=== PATIENT | female | born 1985 | race African-American/Black ===

== ENCOUNTER 2016-10-17 20:20 | Emergency (ER) | payer MEDICAID ==
[~2016-10-17] VITALS: Ht 162.6 cm; Wt 90.7 kg
[2016-10-17 20:50] VITALS: BP 146/81
[2016-10-17] MEDS ORDERED: Albuterol ud Inhalation HHN ONE (22:00)
[2016-10-17] MEDS ORDERED: Ipratropium 0.02% Inh Soln 2.5ml UD HHN ONE (22:00)
[2016-10-17] MEDS ORDERED: Azithromycin 250mg tab ORAL ONE (23:30)
[2016-10-17] MEDS ORDERED: PHENERGAN6.25 MG/5 ORAL (23:31)
[2016-10-17] MEDS ORDERED: AZITHROMYCIN250 MG ORAL (23:31)
[2016-10-17] MEDS ORDERED: TRAMADOL HCL50 MG ORAL (23:31)
[2016-10-17 23:44] VITALS: BP 142/79
--- NOTE | 2016-10-18 10:22 | Emergency Room Report ---
History of Present Illness General Chief Complaint: Upper Respiratory Illness Source: Patient Present Illness HPI URI sy with wheezing for 2 weeks, now worse. Green sputum. H/O asthma. Never on steroids (that she knows). Not her worst attack. Using her inhaler. No CP, NVD, dysuria, HO[place]. Some muscle aches with cough. No calf pain or swelling. Allergies: Coded Allergies: ACETAMINOPHEN (Verified Allergy, Unknown, 10/17/16) CODEINE (Verified Allergy, Unknown, 10/17/16) Patient History Past Medical History: see triage record Social History: Denies: smoking Social History Narrative with mom. Not employed currently Last Menstrual Period: 08/26/16 Now: No Nursing Documentation-PM Past Medical History: No Stated History Review of Systems All Other Systems: negative except mentioned in HPI Physical Exam Vital Signs Date Time Temp Pulse Resp B/P Pulse Ox O2 Delivery O2 Flow Rate FiO2 10/17/16 20:32 98.4 105 19 146/81 100 Room Air Sp02 EP Interpretation: reviewed, normal General Appearance: well appearing, no apparent distress, GCS 15 Head: normocephalic, atraumatic Eyes: bilateral eye PERRL, bilateral eye normal inspection ENT: normal pharynx, moist mucus membranes Neck: supple Respiratory: wheezing, expiration - post tussive Cardiovascular #1: regular rate, rhythm Cardiovascular #2: 2+ radial (R) Gastrointestinal: normal inspection, normal bowel sounds, non tender, no mass, non-distended, overweight Musculoskeletal: back normal, gait/station normal, normal range of motion, no calf tenderness Neurologic: alert, oriented x3 Psychiatric: mood/affect normal Skin: normal inspection, warm/dry Medical Decision Making Diagnostic Impression: Primary Impression: Asthmatic bronchitis Qualified Codes: J45.51 - Severe persistent asthma with (acute) exacerbation ER Course Patient with several week course of URI with productive phlegm. DDx: asthma, bronchitis, pneumonia. Exam c/w prior 2 but need xray. Will also order breathing treatment. Improved with tx. CXR no infiltrate. Improved. Given decadron here. Patient stable for outpatient observation and treatment. Chest X-Ray Diagnostic Results EP Interpretation: Yes Findings: no consolidation, no effusion, no pneumothorax, no acute cardiopulmonary disease Number of Views: 1 Last Vital Signs Date Time Temp Pulse Resp B/P Pulse Ox O2 Delivery O2 Flow Rate FiO2 10/17/16 23:44 98.4 82 16 142/79 100 Room Air Status: improved Disposition: HOME, SELF-CARE Condition: Improved Scripts Tramadol Hcl* (ULTRAM*) 50 Mg Tablet 50 MG ORAL Q6H Y for For Pain, #10 TAB 0 Refills Prov: Garo Rand M.D. 10/17/16 Promethazine/Dextromethorphan (Promethazine-Dm Syrup) 473 Ml Syrup 1 TSP ORAL Q6H Y for For Cough, #90 ML 0 Refills Prov: Garo Rand M.D. 10/17/16 Azithromycin* (ZITHROMAX*) 250 Mg Tablet 250 MG ORAL DAILY for 4 Days, TAB Prov: Garo aRnd M.D. 10/17/16 Patient Instructions: Bronchospasm, Adult Additional Instructions: OK to take tylenol. See your doctor soon. Garo Rand M.D. Oct 18, 2016 10:22
--- NOTE | 2016-10-18 14:26 | Diagnostic Imaging Report ---
Indication: COUGH Technique: Single AP view of the chest. Findings: Comparison: None. The bones and extra pulmonary soft tissues, cardiomediastinal silhouette, pulmonary vasculature and parenchyma, and pleural surfaces are unremarkable. IMPRESSION: Negative AP chest.
== END 2016-10-17 23:44 | disposition home or self-care (01) ==
LOC: EMR 21:28
DX: J45.909 Unspecified asthma, uncomplicated (principal); Z88.6 Allergy status to analgesic agent
CPT/HCPCS: 71010; 94640; 94664; 99283; J8540; Q0144

== ENCOUNTER 2017-03-17 13:55 | Emergency (ER) | payer MEDICAID ==
[~2017-03-17] VITALS: Ht 162.6 cm; Wt 93.0 kg
[~2017-03-17 13:55] MED LIST: AZITHROMYCIN250 MG ORAL; PHENERGAN6.25 MG/5 ORAL; TRAMADOL HCL50 MG ORAL
[2017-03-17 14:13] VITALS: BP 118/62
[2017-03-17] MEDS ORDERED: Lidocaine 2% Visc 15ml soln ORAL ONE (14:30)
[2017-03-17] MEDS ORDERED: Mylanta II UD 30ml ORAL ONE (14:30)
[2017-03-17] MEDS ORDERED: Dicyclomine HCl 10mg/5ml oral soln ORAL ONE (14:30)
[2017-03-17 14:58] LABS: APPEARANCE,URINE CLEAR; KETONES,URINE NEGATIVE (NEGATIVE); LEUKOCYTE ESTERASE ,URINE 1+ (NEGATIVE); NITRITE,URINE NEGATIVE (NEGATIVE); PH,URINE 7 (4.5-8.0); PROTEIN,URINE NEGATIVE (NEGATIVE); UROBILINOGEN,URINE 1 MG/DL (0.0-1.0)
[2017-03-17 15:02] LABS: BASOPHILS % (AUTO) 1.1 % (0.0-2.0); EOSINOPHILS % (AUTO) 1.9 % (0.0-3.0); MEAN CORPUSCULAR HEMOGLOBIN 27.2 PG (27.0-31.0); MEAN CORPUSCULAR HGB CONC 33.2 G/DL (32.0-36.0); MEAN CORPUSCULAR VOLUME 82 FL (80-99); MEAN PLATELET VOLUME 8.3 FL (6.5-10.1); PLATELET COUNT 258 K/UL (150-450); RED BLOOD COUNT 4.62 M/UL (4.20-5.40); RED CELL DISTRIBUTION WIDTH 12.3 % (11.6-14.8); WHITE BLOOD COUNT 7.7 K/UL (4.8-10.8)
[2017-03-17 15:06] LABS: BACTERIA,URINE FEW /HPF; MUCUS,URINE FEW /LPF (NONE/OCC); SQUAMOUS EPITHELIAL CELL,UR FEW /LPF (NONE/OCC)
[2017-03-17 15:38] LABS: ALANINE AMINOTRANSFERASE 9 U/L (3-33); ALBUMIN/GLOBULIN RATIO 1.2 (1.0-2.7); AMYLASE 62 U/L (10-110); ANION GAP 16 (5-15); ASPARTATE AMINO TRANSFERASE 12 U/L (5-40); CALCIUM 9.2 mg/dL (8.6-10.2); CARBON DIOXIDE 26 mEQ/L (20-30); CHLORIDE 95 mEQ/L (98-107); CREATININE 0.8 mg/dL (0.5-0.9); GLOMERULAR FILTRATION RATE > 60 mL/min (>60); HEMOLYSIS 5; LIPASE 30 U/L (< 60); POTASSIUM 3.8 mEQ/L (3.4-4.9); SODIUM 137 mEQ/L (135-145); TOTAL PROTEIN 7.7 g/dL (6.6-8.7)
--- NOTE | 2017-03-17 16:10 | Emergency Room Report ---
History of Present Illness General Chief Complaint: Abdominal Pain Source: Patient Present Illness HPI 31 y/o female c/o epigastric pain x 4 months. Assoc sxs include nausea, bloating and abd cramping. Concurrently, patient also has suprapubic pain and pressure for the past few days. No modifying factors for suprapubic pain, states she has increased nausea with eating meals but pain is constant w/o modifying factors. Patient states she has hx of irregular menses but that is normal for her and denies any dysmenorrhea. Denies any current f/c/d, back pain , neck pain, photophobia, phonophobia, frequency, urgency, dysuria, hematuria, flank pain, CP, SOB headache, melena, hematochezia, steatorrhea, or acid reflux. Allergies: Coded Allergies: ACETAMINOPHEN (Verified Allergy, Unknown, 10/17/16) CODEINE (Verified Allergy, Unknown, 10/17/16) Patient History Past Medical History: see triage record Past Surgical History: none Pertinent Family History: none Last Menstrual Period: 11/16/16 Now: No - pt denies Reviewed Nursing Documentation: PMH: Agreed, PSxH: Agreed Nursing Documentation-PMH Past Medical History: No History, Except For Hx Asthma: Yes Review of Systems All Other Systems: negative except mentioned in HPI Physical Exam Vital Signs Date Time Temp Pulse Resp B/P Pulse Ox O2 Delivery O2 Flow Rate FiO2 03/17/17 14:04 98.4 82 16 114/64 96 Room Air Sp02 EP Interpretation: reviewed, normal General Appearance: no apparent distress, alert, GCS 15, non-toxic Head: normocephalic, atraumatic Eyes: bilateral eye normal inspection ENT: hearing grossly normal, normal pharynx, no angioedema, normal voice Neck: full range of motion, supple/symm/no masses Respiratory: chest non-tender, lungs clear, normal breath sounds, speaking full sentences Cardiovascular #1: regular rate, rhythm, no edema Gastrointestinal: soft, no mass, non-distended, no guarding, no rebound, abnormal bowel sounds - hyperactive, tenderness - epigastric and RUQ. +[place]Burney Musculoskeletal: gait/station normal Neurologic: alert, oriented x3, responsive, motor strength/tone normal, sensory intact, speech normal Psychiatric: judgement/insight normal, memory normal, mood/affect normal, no suicidal/homicidal ideation Skin: normal color, no rash, warm/dry, well hydrated Lymphatic: no adenopathy Medical Decision Making PA Attestation Dr. Masterson is my supervising physician with whom patient management has been discussed with. Diagnostic Impression: Primary Impression: Abdominal pain Qualified Codes: R10.13 - Epigastric pain Additional Impression: Acute cystitis Qualified Codes: N30.00 - Acute cystitis without hematuria ER Course Pt. presents to the ED c/o abdominal pain. Ddx considered but are not limited to viral syndrome, , appendicitis, diverticulitis, constipation, gastroenteritis, abdominal hernia, pancreatitis, cholecystitis, nephrolithiasis, and ovarian torsion. Vital signs: are WNL, pt. is afebrile H&PE are most consistent with abd pain, likely biliary colic with concurrent UTI ORDERS: CBC, CMP, Lipase, Amylase, UA ED INTERVENTIONS: GI cocktail, zofran, NS. DISCHARGE: At this time pt. is stable for d/c to home. Will provide printed patient care instructions, and any necessary prescriptions. Care plan and follow up instructions have been discussed with the patient prior to discharge. Laboratory Tests Test 03/17/17 14:50 White Blood Count 7.7 K/UL (4.8-10.8) Red Blood Count 4.62 M/UL (4.20-5.40) Hemoglobin 12.6 G/DL (12.0-16.0) Hematocrit 37.8 % (37.0-47.0) Mean Corpuscular Volume 82 FL (80-99) Mean Corpuscular Hemoglobin 27.2 PG (27.0-31.0) Mean Corpuscular Hemoglobin Concent 33.2 G/DL (32.0-36.0) Red Cell Distribution Width 12.3 % (11.6-14.8) Platelet Count 258 K/UL (150-450) Mean Platelet Volume 8.3 FL (6.5-10.1) Neutrophils (%) (Auto) 49.0 % (45.0-75.0) Lymphocytes (%) (Auto) 42.0 % (20.0-45.0) Monocytes (%) (Auto) 6.0 % (1.0-10.0) Eosinophils (%) (Auto) 1.9 % (0.0-3.0) Basophils (%) (Auto) 1.1 % (0.0-2.0) Urine Color Yellow Urine Appearance Clear Urine pH 7 (4.5-8.0) Urine Specific [place] 1.015 (1.005-1.035) Urine Protein Negative (NEGATIVE) Urine Glucose (UA) Negative (NEGATIVE) Urine Ketones Negative (NEGATIVE) Urine Occult Blood 1+ (NEGATIVE) H Urine Nitrite Negative (NEGATIVE) Urine Bilirubin Negative (NEGATIVE) Urine Urobilinogen 1 MG/DL (0.0-1.0) H Urine Leukocyte Esterase 1+ (NEGATIVE) H Urine RBC 2-4 /HPF (0 - 2) H Urine WBC 2-4 /HPF (0 - 2) Urine Squamous Epithelial Cells Few /LPF (NONE/OCC) Urine Bacteria Few /HPF (NONE) Urine Mucus Few /LPF (NONE/OCC) H Sodium Level 137 mEQ/L (135-145) Potassium Level 3.8 mEQ/L (3.4-4.9) Chloride Level 95 mEQ/L (98-107) L Carbon Dioxide Level 26 mEQ/L (20-30) Anion Gap 16 (5-15) H Blood Urea Nitrogen 11 mg/dL (7-23) Creatinine 0.8 mg/dL (0.5-0.9) Estimate Glomerular Filtration Rate > 60 mL/min (>60) Glucose Level 98 mg/dL (74-106) Calcium Level 9.2 mg/dL (8.6-10.2) Total Bilirubin 0.6 mg/dL (0.0-1.2) Aspartate Amino Transferase (AST) 12 U/L (5-40) Alanine Aminotransferase (ALT) 9 U/L (3-33) Alkaline Phosphatase 52 U/L (35-104) Total Protein 7.7 g/dL (6.6-8.7) Albumin 4.3 g/dL (3.5-5.2) Globulin 3.4 g/dL Albumin/Globulin Ratio 1.2 (1.0-2.7) Amylase Level 62 U/L (10-110) Lipase 30 U/L (< 60) Chest X-Ray Diagnostic Results Chest X-Ray Ordered: No CT/MRI/US Diagnostic Results CT/MRI/US Diagnostic Results : Imaging Test Ordered: US Abd Impression Contracted gallbladder w/o evidence of stone or wall thickening Last Vital Signs Date Time Temp Pulse Resp B/P Pulse Ox O2 Delivery O2 Flow Rate FiO2 6/11/17 16:45 98.3 85 17 118/62 98 Room Air Status: improved Disposition: HOME, SELF-CARE Condition: Improved Scripts Ondansetron Odt* (ZOFRAN ODT*) 8 Mg Tab.rapdis 8 MG ORAL Q8HR Y for Nausea & Vomiting, #20 TAB Prov: FRANCIE DAVID.A. 03/17/17 Cephalexin* (KEFLEX*) 500 Mg Capsule 500 MG ORAL EVERY 12 HOURS, #14 CAP 0 Refills Prov: FRANCIE DAVID P.A. 03/17/17 Patient Instructions: Abdominal Pain, Adult, Biliary Colic, Fat and Cholesterol Restricted Diet Additional Instructions: Take medication as directed. Patient instructed to stay well hydrated and to use a liquid diet and then progress to soft bland diet as tolerated before reverting back to a regular diet. Patient Education was given to the patient. Patient advised if irreretractible pain, rectal bleeding, or no BM to go to ER immediately. FRANCIE DAVID Mar 17, 2017 16:10
[2017-03-17] MEDS ORDERED: CEPHALEXIN500 MG ORAL (16:27)
[2017-03-17] MEDS ORDERED: ZOFRAN ODT8 MG ORAL (16:27)
[2017-03-17 16:44] VITALS: BP 122/65
[2017-03-17 16:45] VITALS: BP 118/62
--- NOTE | 2017-03-19 11:38 | Diagnostic Imaging Report ---
Indication: PAIN Technique: Wolf-scale and duplex images of the upper abdomen were obtained Comparison: None Findings: Gallbladder is incompletely distended, otherwise unremarkable, without stones, wall thickening, nor pericholecystic fluid. Sonographic Sarmiento's sign is negative. Common bile duct measures 2 mm in diameter. No intrahepatic biliary ductal dilatation. Liver demonstrates normal echogenicity, no focal abnormality. Portal vein and hepatic veins are patent. Pancreas is unremarkable. Spleen is unremarkable. Left kidney measures 11.9 cm in length. Right kidney measures 12 cm length. Both kidneys demonstrate normal echogenicity. There is no hydronephrosis. No focal abnormality . Non-aneurysmal abdominal aorta . Impression: Negative
== END 2017-03-17 16:45 | disposition home or self-care (01) ==
LOC: EMR 14:35
DX: R10.13 Epigastric pain (principal); N30.00 Acute cystitis without hematuria; Z88.6 Allergy status to analgesic agent; K82.0 Obstruction of gallbladder
CPT/HCPCS: 36415; 76700; 80053; 81003; 82150; 83690; 85025; 96360; 96372; 99284; J2405

== ENCOUNTER 2018-02-20 00:36 | Emergency (ER) | payer MEDICAID ==
[~2018-02-20] VITALS: Ht 162.6 cm; Wt 99.8 kg
[~2018-02-20 00:36] MED LIST changes: +CEPHALEXIN500 MG ORAL; +ZOFRAN ODT8 MG ORAL
[2018-02-20] MEDS ORDERED: BENADRYL25 M3 PO (02:22)
[2018-02-20] MEDS ORDERED: KENALOG 0.025%15 GM APPLIC (02:22)
--- NOTE | 2018-02-20 02:25 | Emergency Room Report ---
History of Present Illness General Chief Complaint: Skin Rash/Abscess Source: Patient Present Illness HPI 32-year-old female presents with itching after sitting on a hotel bed. Symptoms started 30 minutes after sitting there She noticed multiple bites Did not see any obvious bugs, but suspected bedbugs Allergies: Coded Allergies: ACETAMINOPHEN (Verified Allergy, Unknown, 10/17/16) CODEINE (Verified Allergy, Unknown, 10/17/16) Patient History Past Medical History: see triage record Last Menstrual Period: december 12 Now: No Reviewed Nursing Documentation: PMH: Agreed; PSxH: Agreed Nursing Documentation-PMH Hx Asthma: Yes Review of Systems All Other Systems: negative except mentioned in HPI Physical Exam Vital Signs Date Time Temp Pulse Resp B/P (MAP) Pulse Ox O2 Delivery O2 Flow Rate FiO2 02/20/18 00:40 98.2 92 18 142/97 99 Room Air 98.2 Sp02 EP Interpretation: reviewed, normal General Appearance: no apparent distress, alert, non-toxic Head: normocephalic Eyes: bilateral eye normal inspection, bilateral eye PERRL, bilateral eye EOMI ENT: normal ENT inspection, hearing grossly normal, normal pharynx, no angioedema, normal voice, moist mucus membranes Neck: normal inspection, full range of motion, supple, supple/symm/no masses Respiratory: lungs clear, normal breath sounds Cardiovascular #1: regular rate, rhythm Cardiovascular #2: 2+ radial (R), 2+ radial (L) Gastrointestinal: normal inspection, non tender, soft, no mass, no guarding, no rebound Rectal: deferred Genitourinary: normal inspection, no CVA tenderness Musculoskeletal: back normal, gait/station normal, normal range of motion Neurologic: alert, responsive, track mechanic III-XII nml as tested, motor strength/tone normal, sensory intact, speech normal Psychiatric: judgement/insight normal, memory normal, mood/affect normal Skin: normal color, no rash, warm/dry, normal turgor, rash - Punctate areas along back and legs, 2 mm diameter slight erythema, no hemorrhagic areas Lymphatic: no adenopathy Medical Decision Making Diagnostic Impression: Primary Impression: Bed bug bite ER Course Examination history very consistent with bedbug bites, we will give triamcinolone and Benadryl Last Vital Signs Date Time Temp Pulse Resp B/P (MAP) Pulse Ox O2 Delivery O2 Flow Rate FiO2 02/20/18 00:40 98.2 92 18 142/97 99 Room Air 98.2 Disposition: HOME, SELF-CARE Condition: Stable Scripts Diphenhydramine HCl (Benadryl) 25 Mg Capsule 25 MG PO QID for 5 Days, CAP Prov: REYES YIP M.D 02/20/18 Triamcinolone Acet (Triamcinolone Acetonide) 15 Gm Cream..g. 15 GM APPLIC BID for 7 Days, GM Prov: REYES YIP M.D 02/20/18 Patient Instructions: Chicho, [id number] REYES YIP M.D February 20, 2018 02:25
[2018-02-20 02:45] VITALS: BP 142/97
== END 2018-02-20 03:35 | disposition home or self-care (01) ==
LOC: EMR 01:34
DX: S30.860A Insect bite (nonvenomous) of lower back and pelvis, initial encounter (principal); S80.862A Insect bite (nonvenomous), left lower leg, initial encounter; S80.861A Insect bite (nonvenomous), right lower leg, initial encounter; W57.XXXA Bitten or stung by nonvenomous insect and other nonvenomous arthropods, initial encounter; Y92.59 Other trade areas as the place of occurrence of the external cause; R21 Rash and other nonspecific skin eruption; J45.909 Unspecified asthma, uncomplicated; Z88.6 Allergy status to analgesic agent; Z88.5 Allergy status to narcotic agent
CPT/HCPCS: 99284

== ENCOUNTER 2018-04-01 13:55 | Emergency (ER) | payer MEDICAID ==
[~2018-04-01] VITALS: Ht 162.6 cm; Wt 99.8 kg
[~2018-04-01 13:55] MED LIST changes: +BENADRYL25 M3 PO; +KENALOG 0.025%15 GM APPLIC
[2018-04-01] MEDS ORDERED: Ketorolac 30mg Inj IM ONE (14:45)
[2018-04-01] MEDS ORDERED: Dexamethasone 4mg/ml vial IM ONE (14:45)
[2018-04-01] MEDS ORDERED: Ipratropium 0.02% Inh Soln 2.5ml UD HHN ONE (14:45)
[2018-04-01] MEDS ORDERED: Albuterol ud Inhalation HHN ONE (14:45)
[2018-04-01] MEDS ORDERED: TYLENOL EXTRA500 MG ORAL (15:23)
[2018-04-01] MEDS ORDERED: ALBUTEROL SULF8.5 GM INH (15:23)
[2018-04-01] MEDS ORDERED: AMOXICILLIN500 MG ORAL (15:23)
[2018-04-01 15:40] VITALS: BP 127/66
--- NOTE | 2018-04-01 15:46 | Emergency Room Report ---
History of Present Illness General Chief Complaint: Flu Like Symptoms Source: Patient Present Illness HPI 32-year-old female presents ED for evaluation. Complaining of body aches and chills since last night. Afebrile in triage. Also complaining of sore throat. Chest tightness. History of asthma. Pain is dull, 10 out of 10, nonradiating. Denies sick contacts or recent travel. Denies dysuria or hematuria. No other aggravating or relieving factors. Denies any other associated symptoms Allergies: Coded Allergies: CODEINE (Verified Allergy, Unknown, 10/17/16) Patient History Past Medical History: asthma Past Surgical History: none Pertinent Family History: none Social History: Denies: smoking, alcohol use, drug use Last Menstrual Period: 5-8 Now: No Immunizations: UTD Reviewed Nursing Documentation: PMH: Agreed; PSxH: Agreed Nursing Documentation-PMH Past Medical History: No History, Except For Hx Asthma: Yes Review of Systems All Other Systems: negative except mentioned in HPI Physical Exam Vital Signs Date Time Temp Pulse Resp B/P (MAP) Pulse Ox O2 Delivery O2 Flow Rate FiO2 04/01/18 14:08 100.9 116 20 127/66 95 Room Air 100.9 04/01/18 15:18 21 Sp02 EP Interpretation: reviewed, normal General Appearance: no apparent distress, alert, GCS 15, non-toxic Head: normocephalic, atraumatic Eyes: bilateral eye normal inspection, bilateral eye PERRL ENT: hearing grossly normal, no angioedema, normal voice, pharyngeal erythema, tonsillar exudate Neck: full range of motion, supple/symm/no masses Respiratory: chest non-tender, lungs clear, speaking full sentences, wheezing Cardiovascular #1: regular rate, rhythm, no edema Cardiovascular #2: 2+ carotid (R), 2+ carotid (L), 2+ radial (R), 2+ radial (L) , 2+ dorsalis pedis (R), 2+ dorsalis pedis (L) Gastrointestinal: normal bowel sounds, non tender, soft, non-distended, no guarding, no rebound Rectal: deferred Genitourinary: normal inspection, no CVA tenderness Musculoskeletal: back normal, gait/station normal, normal range of motion, non- tender Neurologic: alert, oriented x3, responsive, motor strength/tone normal, sensory intact, speech normal Psychiatric: judgement/insight normal, memory normal, mood/affect normal, no suicidal/homicidal ideation Reflexes: 3+ bicep (R), 3+ bicep (L), 3+ tricep (R), 3+ tricep (L), 3+ knee (R) , 3+ knee (L) Skin: normal color, no rash, warm/dry, well hydrated Lymphatic: no adenopathy Medical Decision Making Diagnostic Impression: Primary Impression: Pharyngitis Qualified Codes: J02.9 - Acute pharyngitis, unspecified Additional Impression: Asthmatic bronchitis Qualified Codes: J45.909 - Unspecified asthma, uncomplicated ER Course Hospital Course 32-year-old female presents ED complaining of body aches and chills, sore throat , wheezing Differential diagnoses include: URI, bronchitis, asthma/COPD, pneumonia Clinical course Patient placed on stretcher. After initial history, physical exam reveals female in no acute distress. There is pharyngeal erythema with tonsillar exudates. Bilateral TM unremarkable. Wheezing on exam I ordered decadron, pain meds and nebulizer treatment. Upon reassessment patient states cough and symptoms have improved. Diagnosis - pharyngitis, asthmatic bronchitis Stable and discharged home with prescriptions for Rx amoxicillin, tylenol, albuterol. Instructed to followup with PMD. Return to ED if symptoms recur or worsen Last Vital Signs Date Time Temp Pulse Resp B/P (MAP) Pulse Ox O2 Delivery O2 Flow Rate FiO2 04/01/18 15:27 119 20 99 Room Air 21 04/01/18 14:46 100.9 04/01/18 14:08 127/66 Status: improved Disposition: HOME, SELF-CARE Condition: Stable Scripts Amoxicillin* (AMOXIL*) 500 Mg Capsule 500 MG ORAL THREE TIMES A DAY, #21 CAP Prov: Freddy Terrell MD 04/01/18 Acetaminophen* (TYLENOL EXTRA STRENGTH*) 500 Mg Tablet 500 MG ORAL Q8H PRN for Prn Headache/Temp > 101, #30 TAB 0 Refills Prov: Freddy Terrell MD 04/01/18 Albuterol Sulfate* (ALBUTEROL SULFATE MDI*) 8.5 Gm Hfa.aer.ad 2 PUFF INH Q6H, #1 EA 0 Refills Prov: Freddy Terrell MD 04/01/18 Patient Instructions: Pharyngitis, [id number] Freddy Terrell MD Apr 01, 2018 15:46
== END 2018-04-01 15:50 | disposition home or self-care (01) ==
LOC: EMR 14:41
DX: J02.9 Acute pharyngitis, unspecified (principal); J45.909 Unspecified asthma, uncomplicated; Z88.5 Allergy status to narcotic agent
CPT/HCPCS: 94640; 94664; 96372; 99284; J1100; J1885

== ENCOUNTER 2019-06-25 11:15 | Emergency (ER) | payer OTHER ==
[~2019-06-25] VITALS: Ht 162.6 cm; Wt 102.5 kg
[~2019-06-25 11:15] MED LIST changes: +ALBUTEROL SULF8.5 GM INH; +ALBUTEROL2.5 MG/3 M HHN; +AMOXICILLIN500 MG ORAL; +PREDNISONE20 MG ORAL; +PROMETHAZINE-C118 M1 ORAL; +TYLENOL EXTRA500 MG ORAL
--- NOTE | 2019-06-25 11:33 | NUR ---
ED Nurse Note: Patient in chair awaiting dr review wearing facemask. symptoms for 3 days also complaoing of bilateral feet swelling and vomitting and back pain.
[2019-06-25 11:40] VITALS: BP 145/94
[2019-06-25] MEDS ORDERED: Albuterol ud Inhalation HHN ONE ×2 (11:45→12:30)
--- NOTE | 2019-06-25 12:13 | NUR ---
ED Nurse Note: Patient recieving nebuliser awaiting chest xray. RT present.
--- NOTE | 2019-06-25 13:02 | Diagnostic Imaging Report ---
Indication: Dyspnea Comparison: 10/17/2016 A single view chest radiograph was obtained. Findings: Cardiomediastinal appearance is within normal limits for age. The lungs are clear. Pulmonary vascularity is appropriate. The diaphragmatic contour is smooth and costophrenic angles are sharp. No pleural effusions are identified. The bones are unremarkable. Impression: No acute findings
--- NOTE | 2019-06-25 13:30 | Emergency Room Report ---
History of Present Illness General Chief Complaint: Upper Respiratory Illness Source: Patient Present Illness HPI This patient states that she has had a week of cold symptoms. She states she has had cough and congestion and sore throat. She states that over the past couple days she has developed shortness of breath and an irritable cough. She has a history of asthma. She has been using her albuterol inhaler. She denies fever chills. She denies nausea or vomiting. She states she has been laying around and noted that she has some swelling in her feet. She has no other complaints. Allergies: Coded Allergies: CODEINE (Verified Allergy, Unknown, 10/17/16) Patient History Past Medical History: see triage record, asthma Social History: Denies: smoking, alcohol use, drug use Last Menstrual Period: 11/2018 Now: No - Pt states she has irregular periods Reviewed Nursing Documentation: PMH: Agreed; PSxH: Agreed Nursing Documentation-PM Past Medical History: No History, Except For Hx Asthma: Yes Review of Systems All Other Systems: negative except mentioned in HPI Physical Exam Vital Signs Date Time Temp Pulse Resp B/P (MAP) Pulse Ox O2 Delivery O2 Flow Rate FiO2 06/25/19 11:26 99.1 94 20 145/94 (111) 96 Room Air 06/25/19 12:02 21 Sp02 EP Interpretation: reviewed, normal General Appearance: no apparent distress, alert, GCS 15, non-toxic Head: normocephalic, atraumatic Eyes: bilateral eye normal inspection, bilateral eye PERRL ENT: hearing grossly normal, normal pharynx, no angioedema, normal voice Neck: full range of motion, supple/symm/no masses Respiratory: chest non-tender, lungs clear, normal breath sounds, no respiratory distress, no retraction, no accessory muscle use, decreased breath sounds, speaking full sentences Cardiovascular #1: regular rate, rhythm, no edema Gastrointestinal: normal bowel sounds, non tender, soft, non-distended, no guarding, no rebound Rectal: deferred Musculoskeletal: back normal, gait/station normal, normal range of motion, non- tender Neurologic: alert, oriented x3, responsive, motor strength/tone normal, sensory intact, speech normal Psychiatric: judgement/insight normal, memory normal, mood/affect normal, no suicidal/homicidal ideation Skin: no rash, normal color Medical Decision Making Diagnostic Impression: Primary Impression: Asthmatic bronchitis Additional Impression: Asthma exacerbation ER Course This patient has a clinical presentation consistent with asthma exacerbation. Patient has a history of asthma and has wheezing on physical exam. The patient was given albuterol and Atrovent nebulizer treatments. The patient was also given prednisone orally. The patient had significant improvement in subjective shortness of breath. The patient's lung exam improved significantly. I will also treat the patient with a course of antibiotics as this has been shown to improve the course of an asthma exacerbation. The patient was given close return precautions and followup instructions. Chest X-Ray Diagnostic Results Chest X-Ray Diagnostic Results : Chest X-Ray Ordered: Yes # of Views/Limited/Complete: 1 View Indication: Shortness of Breath EP Interpretation: Yes Interpretation: no consolidation, no effusion, no pneumothorax, no acute cardiopulmonary disease Impression: No acute disease Electronically Signed by: Zhane Moore DO Last Vital Signs Date Time Temp Pulse Resp B/P (MAP) Pulse Ox O2 Delivery O2 Flow Rate FiO2 06/25/19 12:25 98 18 100 Room Air 21 100 18 100 06/25/19 11:40 99.1 145/94 Status: improved Disposition: HOME, SELF-CARE Condition: Improved Referrals: [facility],REFERRING (PCP) Zhane Moore DO Jun 25, 2019 13:30
[2019-06-25] MEDS ORDERED: ZITHROMAX250 MG ORAL (13:32)
[2019-06-25] MEDS ORDERED: PREDNISONE20 MG ORAL (13:32)
[2019-06-25] MEDS ORDERED: ALBUTEROL SULF8.5 GM INH (13:32)
--- NOTE | 2019-06-25 14:00 | NUR ---
ER DISCHARGE NOTE: Patient is cleared to be discharged per ERMD, pt is aox4, on room air, with stable vital signs. pt was given dc and prescription instructions, pt was able to verbalize understanding, pt id bandremoved. pt is able to ambulate with steady gait. pt took all belongings.
[2019-06-25 14:05] VITALS: BP 121/76
== END 2019-06-25 14:08 | disposition home or self-care (01) ==
LOC: EMR 11:47
DX: J45.901 Unspecified asthma with (acute) exacerbation (principal); Z88.6 Allergy status to analgesic agent; Z79.51 Long term (current) use of inhaled steroids
CPT/HCPCS: 71045; 94640; 94664; J7512; Z7502; 99284

== ENCOUNTER 2019-12-08 11:37 | Emergency (ER) | payer OTHER ==
[~2019-12-08] VITALS: Ht 162.6 cm; Wt 99.8 kg
[~2019-12-08 11:37] MED LIST changes: +ZITHROMAX250 MG ORAL
[2019-12-08 11:46] VITALS: BP 142/92
--- NOTE | 2019-12-08 12:07 | Emergency Room Report ---
History of Present Illness General Chief Complaint: Flu Like Symptoms Source: Patient, Medical Record Present Illness HPI Patient is a 34-year-old female past medical history of asthma who presents to the ER complaining of flulike symptoms for the past 3 days. Patient complains of body aches, headache, nonproductive cough. She denies any chest pain or shortness of breath. She denies any rash. She denies any neck stiffness or altered mental status. She denies any recent travel or sick contacts. She denies any history of smoking. Patient states that she has not taken anything for her fever or pain thus far Allergies: Coded Allergies: CODEINE (Verified Allergy, Unknown, 10/17/16) Patient History Past Medical History: asthma Social History: Denies: smoking, alcohol use, drug use Last Menstrual Period: 10/01/2019 Reviewed Nursing Documentation: PSxH: Agreed Nursing Documentation-PMH Past Medical History: No History, Except For Hx Asthma: Yes Review of Systems All Other Systems: negative except mentioned in HPI Physical Exam Vital Signs Date Time Temp Pulse Resp B/P (MAP) Pulse Ox O2 Delivery O2 Flow Rate FiO2 12/08/19 11:46 101.5 107 18 142/92 (109) 96 Room Air Sp02 EP Interpretation: reviewed, normal General Appearance: no apparent distress, alert, GCS 15, non-toxic Head: normocephalic, atraumatic Eyes: bilateral eye normal inspection, bilateral eye PERRL ENT: hearing grossly normal, normal pharynx, no angioedema, normal voice Neck: full range of motion, supple/symm/no masses Respiratory: chest non-tender, lungs clear, normal breath sounds, speaking full sentences Cardiovascular #1: no edema, tachycardia Gastrointestinal: normal bowel sounds, non tender, soft, non-distended, no guarding, no rebound Rectal: deferred Genitourinary: normal inspection, no CVA tenderness Musculoskeletal: back normal, normal range of motion, calf tenderness, gait/ station normal, non-tender Neurologic: alert, motor strength/tone normal, oriented x3, sensory intact, responsive, speech normal Psychiatric: judgement/insight normal, memory normal, mood/affect normal, no suicidal/homicidal ideation Skin: no rash Lymphatic: no adenopathy Medical Decision Making ER Course Patient's fever treated with Tylenol and Motrin. She states that her body aches and headache have improved. She is influenza negative. She is nontoxic- appearing. Chest x-ray demonstrates no acute cardiopulmonary pathology. After discussing risks and benefits of further diagnostics, treatment plans, as well as indications for and risks of admission, the patient is agreeable to being discharged home. I have explained that their evaluation and treatment in the emergency department today is an important step towards them achieving better health but that their evaluation today is not intended to replace further evaluation and treatment by a physician in their local clinic. I have explained that while the current findings suggest no immediate life threatening emergency they will require further evaluation and treatment by a physician of their choice in their area. They understand that it will be necessary for them to review the final reports of their ED visit with their clinic physician. We have reviewed indications for return to the Emergency Department. I have explained that additional time may need to pass and/or additional testing as an outpatient may be necessary before a definitive diagnosis can be made. They tell me they are willing to follow up as instructed within the timeframe I recommend. They appear to understand what we discussed. Additionally they understand that if they are unable to be seen by an outpatient physician they are welcome, and in fact should, return to the Emergency Department for a repeat evaluation. The patient is stable at time of discharge. Chest X-Ray Diagnostic Results Chest X-Ray Diagnostic Results : Chest X-Ray Ordered: Yes # of Views/Limited/Complete: 1 View Indication: Other - cough EP Interpretation: Yes Interpretation: no consolidation, no effusion, no pneumothorax, no acute cardiopulmonary disease Impression: No acute disease Electronically Signed by: Betty Bates MD Last Vital Signs Date Time Temp Pulse Resp B/P (MAP) Pulse Ox O2 Delivery O2 Flow Rate FiO2 12/08/19 11:46 101.5 107 18 142/92 (109) 96 Room Air Disposition: HOME, SELF-CARE Condition: Stable Scripts Azithromycin* (ZITHROMAX*) 250 Mg Tablet 250 MG ORAL DAILY, #6 TAB 0 Refills Take two tables once daily for 1 day, then one tablet once daily for 4 days. Prov: Betty Bates M.D. 12/08/19 Ibuprofen* (MOTRIN*) 600 Mg Tablet 600 MG ORAL Q8H PRN for For Pain, #30 TAB 0 Refills Prov: Betty Bates M.D. 12/08/19 Additional Instructions: Patient discharged in stable improved condition with outpatient follow-up and strict return precautions Betty Bates M.D. Dec 08, 2019 12:07
[2019-12-08 12:29] LABS: APPEARANCE,URINE SLIGHTLY CLOUDY; BILIRUBIN, URINE NEGATIVE (NEGATIVE); GLUCOSE, URINE (UA) NEGATIVE (NEGATIVE); KETONES,URINE 1+ (NEGATIVE); LEUKOCYTE ESTERASE ,URINE 1+ (NEGATIVE); NITRITE,URINE NEGATIVE (NEGATIVE); PH,URINE 6 (4.5-8.0); PROTEIN,URINE 1+ (NEGATIVE); UROBILINOGEN,URINE 4 MG/DL (0.0-1.0)
[2019-12-08 12:51] LABS: COLOR,URINE YELLOW
--- NOTE | 2019-12-08 13:01 | Diagnostic Imaging Report ---
Indication: Dyspnea Comparison: 06/25/2019 A single view chest radiograph was obtained. Findings: Cardiomediastinal appearance is within normal limits for age. The lungs are clear. Pulmonary vascularity is appropriate. The diaphragmatic contour is smooth and costophrenic angles are sharp. No pleural effusions are identified. The bones are unremarkable. Impression: No acute findings
[2019-12-08] MEDS ORDERED: IBUPROFEN600 MG ORAL (13:48)
[2019-12-08] MEDS ORDERED: ZITHROMAX250 MG ORAL (13:49)
[2019-12-08 13:59] VITALS: BP 137/90
== END 2019-12-08 13:59 | disposition home or self-care (01) ==
LOC: EMR 13:50
DX: R51 Headache (principal); R05 Cough; Z88.6 Allergy status to analgesic agent
CPT/HCPCS: 71045; 81003; 86710; Z7502; 99283

== ENCOUNTER 2020-11-11 16:02 | Emergency (ER) | payer OTHER ==
[~2020-11-11] VITALS: Ht 162.6 cm; Wt 99.8 kg
[~2020-11-11 16:02] MED LIST changes: +IBUPROFEN600 MG ORAL
[2020-11-11 16:58] LABS: BASOPHILS % (AUTO) 0.8 % (0.0-2.0); EOSINOPHILS % (AUTO) 1.8 % (0.0-3.0); HEMATOCRIT 40.4 % (37.0-47.0); HEMOGLOBIN 12.5 G/DL (12.0-16.0); MEAN CORPUSCULAR VOLUME 85 FL (80-99); MONOCYTES % (AUTO) 1.9 % (1.0-10.0); NEUTROPHILS % (AUTO) 55.5 % (45.0-75.0); PLATELET COUNT 310 K/UL (150-450); RED BLOOD COUNT 4.76 M/UL (4.20-5.40); RED CELL DISTRIBUTION WIDTH 12.9 % (11.6-14.8); WHITE BLOOD COUNT 7.6 K/UL (4.8-10.8)
[2020-11-11 17:05] LABS: ANION GAP 9 mmol/L (5-15); BLOOD UREA NITROGEN 11 mg/dL (7-18); CALCIUM 9.1 MG/DL (8.5-10.1); CARBON DIOXIDE 27 MMOL/L (21-32); CHLORIDE 104 MMOL/L (98-107); CREATININE 0.9 MG/DL (0.55-1.30); POTASSIUM 3.5 MMOL/L (3.5-5.1); SODIUM 140 MMOL/L (136-145)
--- NOTE | 2020-11-11 17:34 | Emergency Room Report ---
History of Present Illness General Chief Complaint: Vaginal Source: Patient Present Illness HPI 35 YO female presents to the ED concerned for possible miscarriage. She reports that She has only been spotting x 3 days, and today after having a 8/10 in severity cramping lower abdominal pain, she reports feeling as though she needed to have a BM but instead passed a large sized clot/tissue. Pt. reports here cycl e should have been around the 30 of October. She states spotting did not occur until Nov 08. She reports being having 2 previous deliveries and 6 abortions. She reports last resulted in a surgical and this was in 2012. Pt. denies being on control as she reports previous pregnancies she was on depo and didnt know she was until 5 months in. She denies fevers or chills. She denies abdominal tenderness. She denies urinary frequency, urgency, dysuria or hematuria. She denies vaginal dc otherwise. She denies suspicion of STI. She reports she is sexually active. She denies nausea or vomiting, constip ation or diarrhea. She denies having a hx of painful or heavy periods. Denies HOLLAND, dizziness, syncope, or trauma/fall. She denies palpable or tender lymph nodes. She denies rashes. No other aggravating or relieving factors at this time. Pt. is most worried of being possibly or actively miscarrying. 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 Patient History Past Medical History: see triage record Past Surgical History: none Pertinent Family History: none Last Menstrual Period: 10/04/20 Now: No Reviewed Nursing Documentation: PMH: Agreed; PSxH: Agreed Nursing Documentation-PMH Past Medical History: No History, Except For Hx Asthma: Yes Review of Systems All Other Systems: negative except mentioned in HPI Physical Exam Vital Signs Date Time Temp Pulse Resp B/P (MAP) Pulse Ox O2 Delivery O2 Flow Rate FiO2 11/11/20 16:06 98.8 92 16 146/93 (110) 94 Room Air Sp02 EP Interpretation: reviewed, normal General Appearance: no apparent distress, alert, GCS 15, non-toxic Head: normocephalic, atraumatic Eyes: bilateral eye normal inspection, bilateral eye PERRL ENT: hearing grossly normal, normal voice Neck: full range of motion Respiratory: lungs clear, normal breath sounds, speaking full sentences Cardiovascular #1: regular rate, rhythm Gastrointestinal: normal bowel sounds, non tender, soft, non-distended, no guarding Rectal: deferred Genitourinary: normal inspection, no CVA tenderness, adnexa normal, deferred - pelvic exam deferred for labs Musculoskeletal: back normal, normal range of motion, gait/station normal, non- tender Neurologic: alert, motor strength/tone normal, oriented x3, sensory intact, responsive, speech normal Psychiatric: judgement/insight normal Skin: no rash, normal color Lymphatic: no adenopathy Medical Decision Making PA Attestation Dr. Jimenez is my supervising Physician whom patient management has been discussed with. Diagnostic Impression: Primary Impression: Dysmenorrhea ER Course 35 YO female presents to the ED concerned for possible miscarriage. She reports that She has only been spotting x 3 days, and today after having a 8/10 in severity cramping lower abdominal pain, she reports feeling as though she needed to have a BM but instead passed a large sized clot/tissue. Pt. reports here cycle should have been around the 30 of October. She states spotting did not occur until Nov 08. She reports being having 2 previous deliveries and 6 abortions. She reports last resulted in a surgical and this was in 2012. Pt. denies being on control as she reports previous pregnancies she was on depo and didnt know she was until 5 months in. She denies fevers or chills. She denies abdominal tenderness. She denies urinary frequency, urgency, dysuria or hematuria. She denies vaginal dc otherwise. She denies suspicion of STI. She reports she is sexually active. She denies nausea or vomiting, constipation or diarrhea. She denies having a hx of painful or heavy periods. Denies HOLLAND, dizziness, syncope, or trauma/fall. She denies palpable or tender lymph nodes. She denies rashes. No other aggravating or relieving factors at this time. Pt. is most worried of being possibly or actively miscarrying. Ddx considered but are not limited to: dysmenorrhea, Fibroid, ectopic , Fibroid, Spontaneous ,placenta previa, placenta abruptio, hypovolemia. Vital signs: are WNL, pt. is afebrile H&PE are most consistent with: dysmenorrhea ORDERS: -CBC: WNL -UA: WNL -Urine hcg- Negative -Serum Hcg Quant:Negative - Blood/RH type and screen- see attached labs-- O Positive -Pelvic US was canceled. as not need for emergent US at this time. pt. does not have physical exam that indicates acute abdomen at this time. ED INTERVENTIONS: -Tylenol 650mg PO - Toradol 30mg IV DISCHARGE: At this time pt. is stable for d/c to home. Will provide printed patient care instructions, and any necessary prescriptions. Care plan and follow up instructions have been discussed with the patient prior to discharge. Labs Test 11/11/20 16:31 11/11/20 16:41 Urine HCG, Qualitative Negative (NEGATIVE) White Blood Count 7.6 K/UL (4.8-10.8) Red Blood Count 4.76 M/UL (4.20-5.40) Hemoglobin 12.5 G/DL (12.0-16.0) Hematocrit 40.4 % (37.0-47.0) Mean Corpuscular Volume 85 FL (80-99) Mean Corpuscular Hemoglobin 26.2 PG (27.0-31.0) Mean Corpuscular Hemoglobin Concent 30.9 G/DL (32.0-36.0) Red Cell Distribution Width 12.9 % (11.6-14.8) Platelet Count 310 K/UL (150-450) Mean Platelet Volume 7.5 FL (6.5-10.1) Neutrophils (%) (Auto) 55.5 % (45.0-75.0) Lymphocytes (%) (Auto) 40.0 % (20.0-45.0) Monocytes (%) (Auto) 1.9 % (1.0-10.0) Eosinophils (%) (Auto) 1.8 % (0.0-3.0) Basophils (%) (Auto) 0.8 % (0.0-2.0) Sodium Level 140 MMOL/L (136-145) Potassium Level 3.5 MMOL/L (3.5-5.1) Chloride Level 104 MMOL/L (98-107) Carbon Dioxide Level 27 MMOL/L (21-32) Anion Gap 9 mmol/L (5-15) Blood Urea Nitrogen 11 mg/dL (7-18) Creatinine 0.9 MG/DL (0.55-1.30) Estimat Glomerular Filtration Rate > 60 mL/min (>60) Glucose Level 136 MG/DL (74-106) Calcium Level 9.1 MG/DL (8.5-10.1) Human Chorionic Gonadotropin, Quant < 1 mIU/mL (1-6) Last Vital Signs Date Time Temp Pulse Resp B/P (MAP) Pulse Ox O2 Delivery O2 Flow Rate FiO2 11/11/20 16:06 98.8 92 16 146/93 (110) 94 Room Air Status: improved Disposition: HOME, SELF-CARE Condition: Stable Scripts Ibuprofen* (MOTRIN*) 600 Mg Tablet 600 MG ORAL THREE TIMES A DAY, #20 TAB Prov: Anabella Saldivar 11/11/20 Referrals: [facility],REFERRING (PCP) Patient Instructions: Dysmenorrhea, [id number] Additional Instructions: Take medications as directed. Follow up with a EVS TECH within 3-5 days, even if your symptoms have resolved. Return sooner to ED if new symptoms occur, or current symptoms become worse. - Please note that this Emergency Department Report was dictated using [employer] and drug inspector technology software, occasionally this can lead to erroneous entry secondary to interpretation by the dictation equipment. Anabella Saldivar Nov 11, 2020 17:34
[2020-11-11] MEDS ORDERED: IBUPROFEN600 M1 ORAL (17:35)
[2020-11-11] MEDS: Ketorolac 30mg Inj IV ONE (17:41)
[2020-11-11 18:00] VITALS: BP 139/86
--- NOTE | 2020-11-11 18:01 | NUR ---
ER DISCHARGE NOTE: Patient is cleared to be discharged per ERMD, pt is aox4, on room air, with stable vital signs. pt was given dc and prescription instructions, pt was able to verbalize understanding, pt id band and iv site removed without complications. pt is able to ambulate with steady gait. pt took all belongings.
[2020-11-11 18:02] VITALS: BP 139/86
== END 2020-11-11 18:03 | disposition home or self-care (01) ==
LOC: EMR 16:47
DX: N94.6 Dysmenorrhea, unspecified (principal); Z88.5 Allergy status to narcotic agent; J45.909 Unspecified asthma, uncomplicated; Z79.899 Other long term (current) drug therapy
CPT/HCPCS: 36415; 80048; 81025; 84702; 85025; 86900; 86901; 96374; J1885; Z7502; 99284